=== PATIENT | male | born 1940 | race Caucasian/White ===

== ENCOUNTER 2019-10-28 10:33 | Observation (INO) | payer OTHER ==
[2019-10-28 10:51] VITALS: BMI 25.7
[2019-10-28] MEDS: NACHLORIDE 0.45% 1,000 ML IV SCH ×2 (12:03→20:31)
--- NOTE | 2019-10-28 12:23 | RAD REPORT ---
EXAM DESCRIPTION: CT - Abdomen Pelvis Wo Contrast - 10/28/2019 12:11 pm CLINICAL HISTORY: abdominal pain COMPARISON: No comparisons TECHNIQUE: Axial [address] imaging of the abdomen and pelvis was performed without IV contrast. No IV contrast was given because of allergy, abnormal renal function, patient refusal or physician re quest. No oral contrast administered. All CT scans are performed using dose optimization technique as appropriate and may include automated exposure control or mA/KV adjustment according to patient size. FINDINGS: No suspicious findings in the lung bases. Minimal hiatal hernia present. Liver and spleen show no suspicious findings for noncontrast imaging. Atrophy and fatty infiltration of the pancreatic parenchyma noted. No pancreatic or peripancreatic acute finding. Gallbladder and bi liary tree are also without suspicious finding. No hydronephrosis or suspicious renal mass. Nonspecific mild and symmetric perinephric stranding pres ent. No obstructing or nonobstructing calculus. No right adrenal gland abnormality seen. Minimal nodu larity of the left adrenal gland is present not likely to be of long-term significance. Isodense chester l masses and pyelonephritis cannot be excluded in the absence of IV contrast. The urinary bladder is without significant finding. No prostate gland or seminal vesicle abnormality. No gastric dilatation or wall thickening. No small bowel acute finding seen. There is no appendicitis . Moderate stool volume is present throughout most of the colon. No colon dilatation, wall thickening or mass. Sigmoid diverticulosis is mild to moderate in degree with no active component. No free air, free fluid or pneumatosis. No inflammatory stranding in the peritoneal or retroperiton eal spaces. No bulky lymphadenopathy or omental thickening. Small bilateral fat filled inguinal herni as are present. In the fatty tissues of the right-side perineum near the medial margin of the ischium there is a 15 m illimeter rounded soft tissue mass density. This is centrally more hypodense. There is some mild stra nding in the surrounding fat. Lower lumbar disc and bony degenerative changes are present. No pathologic bone process. IMPRESSION: A 15 millimeter round mass is present in the fatty tissues of the perineum along the med ial margin of the right ischium. A smaller developing abscess or inflammatory process is suspected. T his is not a typical site for malignancy. Prominent sigmoid diverticulosis without diverticulitis. No acute GI process seen. Additional nonacute findings detailed in the body of the report. Full assessment is limited is the absence of IV contrast.
[2019-10-28 12:44] LABS: Absolute Lymphocytes (CBC) 1.9 K/uL (0.7-4.9); Basophils % 0.2 % (0-1.3); Hematocrit 40.8 % (39.6-49.0); Lymphocytes % 23.5 % (15.3-44.8); MPV 8.8 fL (7.6-11.3); RBC Red Blood Cell Count 4.61 M/uL (4.33-5.43)
[2019-10-28 12:54] LABS: Carcinoembryonic Antigen 46.1 ng/mL (0-5.0)
[2019-10-28] MEDS: ATORVASTATIN 40 MG TAB PO SCH (20:34)
[2019-10-28] MEDS ORDERED: ATORVASTATIN 40 MG TAB PO SCH (21:00)
--- NOTE | 2019-10-28 21:29 | HP ---
Date of Admission: 10/28/2019 Chief Complaint: Dehydration, poor eating. History Of Present Illness: An 79-year-old male was seen by GI, Services as part of workup for loss of weight, loss of appetite with a possibility of occult malignancy. The patient had EGD done, it wa s negative. The patient's family brought him to the office saying he is not eating. His blood test shows worsening of dehydration. The patient also had elevated CEA compatible with possible malignant process. Past Medical History: Includes history of hypertension, coronary artery disease. Personal History: Nonsmoker. Allergies: NONE. Medications: Home medicines, please refer to the chart. Review of Systems: No history of chest pain. No history of fever, chills, rigors. Physical Examination: General: Revealed an 79-year-old male, alert for his age. HEENT: Negative. Neck: Supple. JVD negative. Chest: Clear. Heart: Regular. Abdomen: No palpable mass. : Perineal region, no obvious mass. Laboratory Data: BUN 39, creatinine 1.45. CBC normal. CEA elevated to 46. Assessment: 1.Dehydration. 2.Probable malignant process not identified. 3.Hypertension. 4.Hyperlipidemia. 5.Known coronary artery disease. Plan: The patient will receive IV fluids, GI consultation. MARK/NICO Voice ID: [id number]
[2019-10-29] MEDS: NACHLORIDE 0.45% 1,000 ML IV SCH ×4 (04:00→20:20)
[2019-10-29 07:18] LABS: Absolute Lymphocytes (CBC) 1.7 K/uL (0.7-4.9); Basophils % 0.3 % (0-1.3); Hematocrit 37.4 % (39.6-49.0); MPV 8.4 fL (7.6-11.3); RBC Red Blood Cell Count 4.25 M/uL (4.33-5.43)
[2019-10-29 07:31] LABS: Potassium 3.6 mmol/L (3.5-5.1)
[2019-10-29 07:33] LABS: Magnesium 1.4 mg/dL (1.8-2.4)
[2019-10-29] MEDS ORDERED: Magnesium Sulfate 2gm IVPB 2 G/50 ML BAG IV ONE (08:00)
[2019-10-29] MEDS: AMLODIPINE 5 MG TAB PO SCH ×2 (08:29→10:52)
[2019-10-29] MEDS ORDERED: AMLODIPINE 5 MG TAB PO SCH (09:00)
[2019-10-29] MEDS ORDERED: GLYCERIN EACH EYE PRN (09:35)
[2019-10-29] MEDS ORDERED: POLYSORBATE EACH EYE PRN (09:35)
--- NOTE | 2019-10-29 09:39 | P.PN ---
Subjective Date of Service: 10/29/19 Primary Care Provider: Dr. Nevarez(I am covering him for the weekend) Chief Complaint: Fatigue, poor intake, weight loss Subjective: Doing well, Other (No significant nausea, vomiting, diarrhea. Patient had reported some poor oral intake.) Physical Examination - Vital Signs Temperature: 97.5 F Blood Pressure: 166/76 Pulse: 69 Respirations: 18 Pulse Ox (%): 97 - Physical Exam General: Alert, In no apparent distress, Cooperative HEENT: Atraumatic Neck: Supple Respiratory: Clear to auscultation bilaterally, Normal air movement Cardiovascular: Normal pulses, Regular rate/rhythm Gastrointestinal: Normal bowel sounds, Soft and benign, Non-distended, No tenderness, No masses, No rebound, No guarding Musculoskeletal: No erythema, No tenderness, No warmth Integumentary: No tenderness/swelling, No erythema, No warmth, No cyanosis, Other (No erythema or swelling noted to the perineum.) Neurological: Normal speech, Normal strength at 5/5 x4 extr, Normal tone, Normal affect - Studies Laboratory Data (last 24 hrs) 10/29/19 07:06: Sodium 136, Potassium 3.6, BUN 28 H, Creatinine 1.08, Glucose 114 H, Magnesium 1.4 L* 10/29/19 07:06: WBC 7.1, Hgb 12.6 L, Hct 37.4 L, Plt Count 209 10/28/19 12:12: Sodium 137, Potassium 4.0, BUN 39 H, Creatinine 1.43 H, Glucose 125 H 10/28/19 12:12: WBC 8.2 D, Hgb 13.8, Hct 40.8, Plt Count 244 Medications List Reviewed: Yes Assessment & Plan Discharge Plan: Home Plan to discharge in: 24 Hours Physician Review Additional Text: Impression: Poor intake, weight loss, with acute renal injury likely dehydration with Hypomagnesia Recent EGD showing GERD and hiatal hernia CT scan showing 15 mm rounded mass in the fatty tissue of the perineum Hypertension CAD Elevated CEA with history of weight loss Plan: Poor intake, weight loss, with acute renal injury likely dehydration with Hypomagnesia: Continue IV hydration and replacement of electrolytes. Continue to monitor lab closely. I am covering for PCP. PCP had made arrangements with GI to have colonoscopy tomorrow. Will discuss with GI today to see if this can be done as an outpatient versus inpatient. Patient is Medicare and and observation. Will monitor electrolytes. Will discuss further with GI. Plan of care discussed with patient. Will reassess later. Recent EGD showing GERD and hiatal hernia: Will provide PPI. 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 On palpation no evidence of mass. Surgery was consulted to further evaluate. Hypertension: Continue medication. Will hold all losartan. Patient also on Norvasc. Hold blood pressure medication if systolic less than 110. CAD: Will provide DVT prophylaxis. Elevated CEA with history of weight loss: As mentioned above. GI plans for colonoscopy tomorrow. Time Spent Managing Pts Care (In Minutes): 55
--- NOTE | 2019-10-29 10:39 | CON ---
Date of Consultation: 10/29/2019 Brief History Of Present Illness: Patient is a patient of Dr. Nevarez, who was seen as part of a cornelius p for weight loss, loss of appetite, possible occult malignancy and an EGD performed by report, which is nondiagnostic. He was brought to Dr. Nevarez's office saying he had decreased appetite and was fee ling weak, fatigued and dehydrated overall. He had elevation of his CEA level concerning. He has ne adama had a colonoscopy before. Dr. Aguilar was consulted to see him for the above-stated concern. I, however, was consulted to see the patient regarding a nodular mass found in his perineal area on imag ing. 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 Social History: He denies smoking, alcohol, recreational drug use. Allergies: NO KNOWN DRUG ALLERGIES. Home Medications: Included amlodipine, Lipitor, Benadryl, Cozaar, Glucophage, omeprazole, eye drops, and HydroDIURIL/hydrochlorothiazide. Review of Systems: 10-point review of systems other than HPI, denies. Physical Examination: Vital Signs: At the time of my examination, his blood pressure 166/76, pulse 69, respiratory rate 18 , temperature 97.5. General: He is awake, alert, and oriented. Psychiatric: Appropriate, conversive. HEENT: Normocephalic. Sclerae are anicteric. His mucous membranes are moist. Oropharynx clear. Neck: Supple. No JVD. Chest: Normal expansion, excursion. Cardiovascular: Regular rhythm. Pulmonary: Clear to auscultation bilaterally. Abdomen: Soft, nontender, nondistended. Dermatologic: Focused examination of the perineal area shows he has a nodular lesion in the perineal area, which was diagnosed previously on CT scan and I find that it is palpable along the medial devin in of the right ischium. It is small, minimally tender and smooth and mobile. There is no evidence of cellulitis at this area. Laboratory Exam: Reveals a white blood cell count of 7.1, hemoglobin of 12.6, hematocrit of 37.4, pl atelet count is 209. His sodium is 136, potassium 3.6, chloride 98, carbon dioxide is 28, BUN 28, cr eatinine 1.08, glucose is 114, calcium os 9.5, magnesium 1.4. CEA level is 46.1. Procalcitonin is 0 .07. He had imaging performed which included a CT scan of the abdomen and pelvis, officially read as liver and spleen showed no suspicious findings for non-con imaging. There is a 15 mm round mass present i n the fatty tissues of the perineum along the medial margin of right ischium, a small developing absc ess or inflammatory process suspected. This is not typical for malignancy. Prominent sigmoid divert iculosis without diverticulitis. No other GI findings and other nonacute findings were evident. Assessment And Plan: This is an 79-year-old male with fatigue, weight loss. A small perineal collec tion/cystic structure as well as concern for occult malignancy with elevation of the CEA level. 1.IV fluid hydration. 2.Medical management and electrolyte correction. 3.Bowel prep. 4.I recommend the patient get a colonoscopy. Dr. Aguilar is consulted to see the patient and plans t o perform a colonoscopy. 5.I do not find the patient has any acute surgical intervention requirement at this time regarding t his cystic structure. However, should we continue the workup for occult primary and not the obvious on workup, we can consider excisional biopsy of this area to assist with the diagnosis. Thank you for this interesting consult. I will follow along with you. FRANCISCO/NICO Voice ID: [id number] Report ID: [id number]
[2019-10-29] MEDS ORDERED: TRAMADOL HCL 50 MG TAB PO PRN (14:17)
[2019-10-29] MEDS ORDERED: ACETAMINOPHEN 500 MG TAB PO PRN (14:17)
[2019-10-29] MEDS: GLUCERNA SHAKE 237 ML CAN PO SCH ×4 (14:25→21:14)
[2019-10-29] MEDS ORDERED: HYDRALAZINE HCL 25 MG TABLET PO PRN (14:26)
[2019-10-29] MEDS ORDERED: GOLYTELY 4000 ML PO SCH (17:00)
[2019-10-29] MEDS: AMLODIPINE 5 MG PO SCH (21:12)
[2019-10-29] MEDS: ATORVASTATIN 40 MG TAB PO SCH (21:13)
[2019-10-30] MEDS: NACHLORIDE 0.45% 1,000 ML IV SCH ×2 (04:51→09:40)
[2019-10-30 06:05] LABS: Absolute Lymphocytes (CBC) 1.7 K/uL (0.7-4.9); Basophils % 0.5 % (0-1.3); Lymphocytes % 26.7 % (15.3-44.8); MPV 8.2 fL (7.6-11.3); RBC Red Blood Cell Count 4.02 M/uL (4.33-5.43)
[2019-10-30 06:28] LABS: Magnesium 1.6 mg/dL (1.8-2.4); Potassium 3.3 mmol/L (3.5-5.1); Prealbumin 18.4 mg/dL (20-40)
[2019-10-30] MEDS ORDERED: MAGNESIUM SULFATE 1 gm IVPB 1 GM/100 ML BAG IV ONE (06:32)
[2019-10-30] MEDS ORDERED: PANTOPRAZOLE 40MG TABLET PO SCH (07:30)
[2019-10-30] MEDS ORDERED: EPINEPHRINE/PF 1 MG/ML AMP ONE (07:44)
[2019-10-30] MEDS ORDERED: NA CHLORIDE 0.9% 1,000 ML ONE (08:18)
--- NOTE | 2019-10-30 08:25 | P.DS ---
Admission Date: 10/28/19 Discharge Date: 10/30/19 Primary Care Provider: Dr. Nevarez(I am covering him for the weekend) Disposition: ROUTINE DISCHARGE Discharge Condition: GOOD Reason for Admission: Fatigue, poor intake, weight loss Consultations: Surgery-Dr. Danielle GI-Dr. Aguilar Procedures: CT Scan: FINDINGS: No suspicious findings in the lung bases. Minimal hiatal hernia present. Liver and spleen show no suspicious findings for noncontrast imaging. Atrophy and fatty infiltration of the pancreatic parenchyma noted. No pancreatic or peripancreatic acute finding. Gallbladder and biliary tree are also without suspicious finding. No hydronephrosis or suspicious renal mass. Nonspecific mild and symmetric perinephric stranding present. No obstructing or nonobstructing calculus. No right adrenal gland abnormality seen. Minimal nodularity of the left adrenal gland is present not likely to be of long-term significance. Isodense renal masses and pyelonephritis cannot be excluded in the absence of IV contrast. The urinary bladder is without significant finding. No prostate gland or seminal vesicle abnormality. No gastric dilatation or wall thickening. No small bowel acute finding seen. There is no appendicitis. Moderate stool volume is present throughout most of the colon. No colon dilatation, wall thickening or mass. Sigmoid diverticulosis is mild to moderate in degree with no active component. No free air, free fluid or pneumatosis. No inflammatory stranding in the peritoneal or retroperitoneal spaces. No bulky lymphadenopathy or omental thickening. Small bilateral fat filled inguinal hernias are present. In the fatty tissues of the right-side perineum near the medial margin of the ischium there is a 15 millimeter rounded soft tissue mass density. This is centrally more hypodense. There is some mild stranding in the surrounding fat. Lower lumbar disc and bony degenerative changes are present. No pathologic bone process. IMPRESSION: A 15 millimeter round mass is present in the fatty tissues of the perineum along the medial margin of the right ischium. A smaller developing abscess or inflammatory process is suspected. This is not a typical site for malignancy. Prominent sigmoid diverticulosis without diverticulitis. No acute GI process seen. Colonoscopy: Unremarkable except diverticulosis. No mass found. Medical Problem List: Poor intake, weight loss, with acute renal injury likely dehydration with Hypomagnesia Recent EGD showing GERD and hiatal hernia CT scan showing 15 mm rounded mass in the fatty tissue of the perineum Hypertension CAD Elevated CEA with history of weight loss Diabetes mellitus type 2 Moderate protein malnutrition Hyperlipidemia Brief History of Present Illness: 79-year-old male presented with weight loss, loss of appetite. Patient found to have acute renal injury due to dehydration. CT scan shows no obstruction. Patient recently had EGD showing gastritis and hiatal hernia. CEA abnormal. Patient admitted for further evaluation. Hospital Course: Patient presented with poor oral intake, recent severe weight loss. Patient found to have acute renal injury related to dehydration with hypomagnesia. Patient given IV fluids with electrolyte replacement. Patient has improved. Patient had abnormal CEA. This was suspicious for cancer. Surgery was consulted for further recommendation along with GI. Both recommended colonoscopy to further address. This was done in the hospital due to his dehydration status and malnutrition. Colonoscopy performed. Colonoscopy only showed diverticulosis. No mass was noted. Case discussed with surgery and GI. No further intervention needed at this time. Patient will follow up with surgery to further address. Patient had a 15 mm round mass in the fatty tissue of the perineum. This is likely benign but will require biopsy. Still may need to further evaluate for possible occult malignancy. Surgery is to complete workup with possible PET-CT scan in the future. Further workup to be further addressed by surgery. As mentioned above patient with recent EGD showing gastritis and hiatal hernia. Patient had prior esophagram which was unremarkable. Patient previously on Prilosec. This has been discontinued. At discharge he will continue with Protonix [address] scan showed no obstruction but showed a 15 mm round mass in the fatty tissue of the perineum. Surgery evaluated this closely. No need for intervention at this time. Patient will follow up with surgery to biopsy mass. Recommend follow up with surgery within 1 week to further address.. Patient with CAD and hypertension. Medications have been adjusted. Patient previously on hydrochlorothiazide 25 mg daily, losartan 100 mg daily, and Norvasc 5 mg daily. Norvasc was increased and losartan/hydrochlorothiazide were discontinued. Blood pressure has remained stable. At discharge patient will recommend to increase Norvasc to 10 mg daily. Will also recommend to discontinue hydrochlorothiazide and restart losartan at 25 mg twice daily. Recommend to hold blood pressure medication if systolic less than 110. Recommend to monitor blood pressures daily. If blood pressure remains above 140 /90 losartan may need to be further adjusted. This can be addressed by his PCP. Patient with moderate protein malnutrition. Prealbumin was low. Patient started on Glucerna 3 times a day. Patient reports history of diabetes mellitus type 2. A1c obtained. Blood sugar stable. Patient takes metformin. Blood sugar well controlled. At discharge he may continue with metformin 500 mg twice daily but will need to hold medication if blood sugar consistently below 100. Patient may continue with GI soft diet and advance to 2000 ADA diet but will recommend to continue Glucerna 4 times a day to make sure he has adequate nutrition. Recommend to monitor blood sugars at least twice daily, fasting and 2 hr after dinner. Recommend to maintain blood sugars less 140 fasting and less than 200 meals. This can be further monitored and addressed by his PCP. Patient with hyperlipidemia. At discharge he will continue with Lipitor 40 mg daily. Due to his acute renal injury, Will recommend to increase oral intake. Medications have been adjusted as above. Recommend to recheck lab-BMP in 1 week to monitor his progress. Vital Signs/Physical Exam: Temp Pulse Resp BP Pulse Ox 97.6 F 74 16 168/74 H 97 10/30/19 08:00 10/30/19 08:00 10/30/19 08:00 10/30/19 08:00 10/30/19 08:00 General: Alert, In no apparent distress, Oriented x3, Cooperative HEENT: Atraumatic Neck: Supple Respiratory: Clear to auscultation bilaterally, Normal air movement Cardiovascular: Normal pulses, Regular rate/rhythm Gastrointestinal: Normal bowel sounds, Soft and benign, Non-distended, No tenderness, No masses, No rebound, No guarding Musculoskeletal: No erythema, No tenderness, No warmth Integumentary: No tenderness/swelling, No erythema, No warmth, No cyanosis Neurological: Normal speech, Normal strength at 5/5 x4 extr, Normal tone, Normal affect Laboratory Data at Discharge: WBC 6.5 K/uL (4.3-10.9) 10/30/19 05:54 Hgb 12.1 g/dL (13.6-17.9) L 10/30/19 05:54 Hct 35.0 % (39.6-49.0) L 10/30/19 05:54 Plt Count 209 K/uL (152-406) 10/30/19 05:54 Sodium 136 mmol/L (136-145) 10/30/19 05:54 Potassium 3.3 mmol/L (3.5-5.1) L 10/30/19 05:54 BUN 19 mg/dL (7-18) H 10/30/19 05:54 Creatinine 0.96 mg/dL (0.55-1.3) 10/30/19 05:54 Glucose 122 mg/dL (74-106) H 10/30/19 05:54 Magnesium 1.6 mg/dL (1.8-2.4) L 10/30/19 05:54 Home Medications: Atorvastatin Calcium [Lipitor] 1 tab PO BEDTIME 10/28/19 Diphenhydramine HCl [Benadryl Allergy] 25 mg PO PRN PRN 10/28/19 Metformin HCl [Glucophage] 500 mg PO BID 10/28/19 Polysorbate 80/Glycerin [Refresh Dry Eye Therapy Drops] 1 drop EACH EYE PRN PRN 10/28/19 Amlodipine Besylate [Norvasc] 10 mg PO DAILY #30 tablet 10/30/19 Glucerna Shake [Glucerna*] 237 ml PO QID #120 can 10/30/19 Losartan Potassium 25 mg PO BID #60 tablet 10/30/19 Pantoprazole Sodium [Protonix] 40 mg PO DAILY #30 tablet. 10/30/19 New Medications: Amlodipine Besylate [Norvasc] 10 mg PO DAILY #30 tablet Glucerna Shake [Glucerna*] 237 ml PO QID #120 can Losartan Potassium 25 mg PO BID #60 tablet Pantoprazole Sodium [Protonix] 40 mg PO DAILY #30 tablet. Patient Discharge Instructions: 1. Recommend follow up with PCP in 1 week to follow up this hospitalization. 2. Patient presented with poor oral intake, recent severe weight loss. Patient found to have acute renal injury related to dehydration with hypomagnesia. Patient given IV fluids with electrolyte replacement. Patient has improved. Patient had abnormal CEA. This was suspicious for cancer. Surgery was consulted for further recommendation along with GI. Both recommended colonoscopy to further address. This was done in the hospital due to his dehydration status and malnutrition. Colonoscopy performed. Colonoscopy only showed diverticulosis. No mass was noted. Case discussed with surgery and GI. No further intervention needed at this time. Patient will follow up with surgery to further address. Patient had a 15 mm round mass in the fatty tissue of the perineum. This is likely benign but will require biopsy. Still may need to further evaluate for possible occult malignancy. Surgery is to complete workup with possible PET-CT scan in the future. Further workup to be further addressed by surgery. 3. As mentioned above patient with recent EGD showing gastritis and hiatal hernia. Patient had prior esophagram which was unremarkable. Patient previously on Prilosec. This has been discontinued. At discharge he will continue with Protonix [address] scan showed no obstruction but showed a 15 mm round mass in the fatty tissue of the perineum. Surgery evaluated this closely. No need for intervention at this time. Patient will follow up with surgery to biopsy mass. Recommend follow up with surgery within 1 week to further address.. 5. Patient with CAD and hypertension. Medications have been adjusted. Patient previously on hydrochlorothiazide 25 mg daily, losartan 100 mg daily, and Norvasc 5 mg daily. Norvasc was increased and losartan/hydrochlorothiazide were discontinued. Blood pressure has remained stable. At discharge patient will recommend to increase Norvasc to 10 mg daily. Will also recommend to discontinue hydrochlorothiazide and restart losartan at 25 mg twice daily. Recommend to hold blood pressure medication if systolic less than 110. Recommend to monitor blood pressures daily. If blood pressure remains above 140 /90 losartan may need to be further adjusted. This can be addressed by his PCP. 6. Patient with moderate protein malnutrition. Prealbumin was low. Patient started on Glucerna 3 times a day. Patient reports history of diabetes mellitus type 2. A1c obtained. Blood sugar stable. Patient takes metformin. Blood sugar well controlled. At discharge he may continue with metformin 500 mg twice daily but will need to hold medication if blood sugar consistently below 100. Patient may continue with GI soft diet and advance to 1999 ADA diet but will recommend to continue Glucerna 4 times a day to make sure he has adequate nutrition. Recommend to monitor blood sugars at least twice daily, fasting and 2 hr after dinner. Recommend to maintain blood sugars less 140 fasting and less than 200 meals. This can be further monitored and addressed by his PCP. 7. Patient with hyperlipidemia. At discharge he will continue with Lipitor 40 mg daily. 8. Due to his acute renal injury, Will recommend to increase oral intake. Medications have been adjusted as above. Recommend to recheck lab-BMP in 1 week to monitor his progress. Diet: GI soft advanced to 1999 ADA Activity: Ad lili Time spent managing pt's care (in minutes): 55
[2019-10-30] MEDS ORDERED: propofoL 200 MG/20 ML VIAL IV ONE (08:48)
[2019-10-30] MEDS: GLUCERNA SHAKE 237 ML CAN PO SCH (09:00)
[2019-10-30] MEDS ORDERED: HOME MED 1 EA UNK (Losartan Potassium [Cozaar] 1 TAB) PO SCH (09:00)
[2019-10-30] MEDS ORDERED: LOSARTAN POTASSIUM 50 MG TABLET PO SCH (09:00)
[2019-10-30] MEDS ORDERED: HOME MED 1 EA UNK (Omeprazole [Omeprazole] 1 TAB) PO SCH (09:00)
[2019-10-30] MEDS ORDERED: KCL 20 MEQ/100 mL IVPB 20 MEQ/100 ML BAG IV SCH (09:00)
[2019-10-30] MEDS ORDERED: GLYCOPYRROLATE 0.2 MG/ML SYR ONE ×2 (09:11→09:13)
--- NOTE | 2019-10-30 09:22 | ENDO RPT ---
[address], [address] COLONOSCOPY PROCEDURE REPORT EXAM DATE: 10/30/2019 PATIENT NAME: Vincent English MR #: [id number] BIRTHDATE: 1940 ATTENDING: Evert Aguilar Dr STATUS: inpatient SPENT GRAIN DRYER: Chelo Pascual RN and Terri Priest INDICATIONS: The patient is a 79 yr old Male here for a colonoscopy due to colon cancer screening (none prior), elevated CEA in hospital, and weight loss PROCEDURE PERFORMED: Colonoscopy MEDICATIONS: Per Anesthesia. ESTIMATED BLOOD LOSS: None CONSENT: The patient understands the risks and benefits of the procedure and understands that these risks include, but are not limited to: sedation, allergic reaction, infection, perforation and/or bleeding. Alternative means of evaluation and treatment include, among others: physical exam, x-rays, and/or surgical intervention. The patient elects to proceed with this endoscopic procedure. DESCRIPTION OF PROCEDURE: During intra-op preparation period all mechanical medical equipment was checked for proper function. Hand hygiene and appropriate measures for infection prevention was taken. Procedure, possible complications, alternatives including, but not limited to possibility of bleeding, perforation, tear, infection, sepsis, need for surgery, need for blood transfusion, were explained to the patient. After the risks, benefits and alternatives of the procedure were thoroughly explained, Informed consent was verified, confirmed and timeout was successfully executed by the treatment team. The patient was placed in the left lateral position. A digital rectal exam was performed and revealed external hemorrhoids. After appropriate level of anesthesia, the scope was passed. The EC-[id number] ([id number]) endoscope was introduced through the anus and advanced to the terminal ileum which was intubated for a short distance. The quality of the prep was good. The instrument was then slowly withdrawn as the colon was fully examined. Scope withdrawal time was 7 minutes. COLON FINDINGS: Mild diverticulosis was noted throughout the entire examined colon. No bleeding was noted from the diverticulosis. Small internal and external hemorrhoids were found. Retroflexed views revealed small hemorrhoids. The scope was then completely withdrawn from the patient and the procedure terminated. ADVERSE EVENTS: There were no complications. IMPRESSIONS: 1. Mild diverticulosis throughout the entire examined colon 2. Small internal and external hemorrhoids 3. Intubation to terminal ileum RECOMMENDATIONS: follow-up: GI Clinic 1 week(s) RECALL: None scheduled due to age, 79 [address] eSigned: Evert Aguilar Dr 10/30/2019 9:22 AM cc: Emilia Villalpando CPT CODES: ICD9 CODES: PATIENT NAME: Vincent EnglishJf MR#: [id number]
[2019-10-30 09:36] VITALS: O2SAT 100
--- NOTE | 2019-10-30 10:13 | P.PN ---
Subjective Date of Service: 10/30/19 Primary Care Provider: Dr. Nevarez(I am covering him for the weekend) Chief Complaint: Fatigue, poor intake, weight loss Patient had no acute issues, had colonoscopy with Dr. Ling which did not discover any masses in colon. Physical Examination - Vital Signs Temperature: 99.2 F Blood Pressure: 149/55 Pulse: 65 Respirations: 16 Pulse Ox (%): 97 - Physical Exam General: Alert, In no apparent distress, Cooperative Gastrointestinal: Soft and benign, Non-distended, No ascites, No tenderness, No masses, No rebound, No guarding - Studies Laboratory Data (last 24 hrs) 10/30/19 05:54: Sodium 136, Potassium 3.3 L, BUN 19 H, Creatinine 0.96, Glucose 122 H, Magnesium 1.6 L 10/30/19 05:54: WBC 6.5, Hgb 12.1 L, Hct 35.0 L, Plt Count 209 10/29/19 14:45: Magnesium 2.0 D Medications List Reviewed: Yes Assessment And Plan - Current Problems (Diagnosis) (1) Fatigue Current Visit: Yes Status: Acute Plan: - recommend nutrition support per our discussion - follow up in my clinic as outpatient for excision of perineal cyst - workup for possible occult primary due to history of weight loss and elevated CEA level Physician Review Additional Text: Impression: Poor intake, weight loss, with acute renal injury likely dehydration with Hypomagnesia Recent EGD showing GERD and hiatal hernia CT scan showing 15 mm rounded mass in the fatty tissue of the perineum Hypertension CAD Elevated CEA with history of weight loss Plan: Poor intake, weight loss, with acute renal injury likely dehydration with Hypomagnesia: Continue IV hydration and replacement of electrolytes. Continue to monitor lab closely. I am covering for PCP. PCP had made arrangements with GI to have colonoscopy tomorrow. Will discuss with GI today to see if this can be done as an outpatient versus inpatient. Patient is Medicare and and observation. Will monitor electrolytes. Will discuss further with GI. Plan of care discussed with patient. Will reassess later. Recent EGD showing GERD and hiatal hernia: Will provide PPI. 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 On palpation no evidence of mass. Surgery was consulted to further evaluate. Hypertension: Continue medication. Will hold all losartan. Patient also on Norvasc. Hold blood pressure medication if systolic less than 110. CAD: Will provide DVT prophylaxis. Elevated CEA with history of weight loss: As mentioned above. GI plans for colonoscopy tomorrow.
[2019-10-30] MEDS: AMLODIPINE 5 MG PO SCH (10:17)
[2019-10-30 11:26] LABS: Urine Appearance CLEAR; Urine Bilirubin NEGATIVE (NEG); Urine Blood NEGATIVE (NEG); Urine Color YELLOW; Urine Glucose NEGATIVE (NEG); Urine Protein NEGATIVE (NEG); Urine Specific Gravity <=1.005 (1.005-1.030); Urine Urobilinogen 0.2 mg/dL (0.2-1.0); Urine pH 6.5 (5.0-7.0)
[2019-10-30 12:11] VITALS: BP 183/78; TEMP 97.8
[2019-10-30 12:13] LABS: Urine Bacteria <20 /HPF (NONE SEEN); Urine RBC <5 /HPF (NONE SEEN)
[2019-10-30 13:21] LABS: Protime INR 1.14
[2019-10-30 13:40] LABS: Albumin 3.1 g/dL (3.4-5.0); Bilirubin Direct 0.2 mg/dL (0-0.2); Bilirubin Total 0.6 mg/dL (0.2-1.0); Protein, Total 7.1 g/dL (6.4-8.2)
--- NOTE | 2019-10-30 14:43 | CON ---
Date of Consultation: 10/30/2019 Reason For Consultation: Weight loss, elevated CEA. No prior colon cancer screening and possible ma lnutrition. History Of Present Illness: Patient is an 79-year-old white male with history of diabetes; hypertens ion; coronary artery disease, status post 3-vessel CABG. Patient presented to hospital due to contin ue weight loss and anorexia. Patient has lost approximately 50 to 60 pounds over the past 6 months. Etiology unknown. Patient state he quit tobacco approximately 30 years ago. Patient denies any mike shon, hematochezia, hematemesis, coffee-ground emesis, hematuria, dysuria, polydipsia, chest pain, tika rt of breath, seizure, syncope. He has had weight loss of approximately 50 to 60 pounds over the pas t 6 months with loss of appetite, stating he feels full all the time. He underwent barium swallow es ophagram and upper endoscopy without malignancy being detected. He has never had colonoscopy. Past Medical History: Significant for diabetes; hypertension; coronary artery disease status post CA BG, 3-vessel. Home Medications: Metformin, Norvasc, , Lipitor, Cozaar, omeprazole, Benadryl, and some Re fresh eye drops. Allergies: NKDA. Social History: , 1 daughter. No tobacco, quit 30 years ago. No alcohol. Family History: Father of a stroke. Mother of old age at age 90, had a hip fracture prior to her he reports. Review of Systems: The patient has fullness with any type of p.o. intake, some anorexia, 50 to 60 pounds weight loss ove r the past 6 months. Unexplained. Denies any melena, hematochezia, hematemesis, coffee-ground hemat uria, dysuria, polydipsia chest pain, short of breath, seizure, syncope, lower extremity muscle aches , joint aches, backaches. The and daughter state he has occasional nausea, vomiting, regurgitat ion. Some dysphagia in the past but none now. Denies depression, anxiety, elevated pus seem like he is not able to remember all things well. Physical Examination: Vital Signs: The patient is 5 foot, 169 pounds, BMI 25.7 kg/m2. General: He is an elderly male, lying in bed, in no acute distress. HEENT: Normocephalic, atraumatic. Anicteric. Pupils equal, round, and reactive to light. Extraocu lar movements are intact. Oropharynx is clear. Neck: Supple. No masses. Respirations: Clear to auscultation bilaterally. Cardiac: Regular rate and rhythm. Gastrointestinal: Positive bowel sounds. Soft, nontender, nondistended. No hepatosplenomegaly. Extremities: No clubbing, cyanosis. 2+ pulses. Neuro: Alert and oriented x2 to 3. Able to move all extremities well. Sensation intact to light to uch. Laboratory Data: Patient has a white count of 7.1, hemoglobin of 12.6, hematocrit 37.4, MCV of 88, p latelet count 209, polys of 64%, lymphocytes 24%, monocytes 11%, eosinophils 1%. Patient has a sodiu m of 136, potassium 3.3, chloride 101, bicarb 28, BUN of 19, creatinine of 0.96, glucose 122, calcium of 9.1, magnesium 1.6. C-reactive protein of 24, pre-albumin of 18.4, normal at 2240. Patient had a CA-19-9 of 46.1, normal being less than 5 on October 28. Calcium was little elevated on admissi on at 10.2. Patient had a chest x-ray, October 24, that revealed mild COPD, otherwise negative. The sternotomy wires are present. Patient had a modified barium swallow on October 13 that was largely unremarka ble except for mild esophageal stasis and refluxed from the final pureed bolus. Barium swallow on as well that was unremarkable. CT abdomen and pelvis revealed a 15 mm round mass and the fatty tissues of the perineum along the medial margin of the right ischium. He has a history of a p erirectal abscess. The patient's CT Radiology suspect small developing abscess encountered process i s suspected, not typical site for malignancy. He has some prominent sigmoid diverticulosis without d iverticulitis. No other significant findings noted, suffer some lower lumbar disk and bony degenerat janette changes. Impression: 1.Weight loss with elevated CEA of 46.1, nonspecific. He has had no prior colon cancer screening. Of note, he use tobacco in the past, quit 30 years ago. Chest x-ray is unremarkable. CT scan does n ot reveal any malignancy, need to proceed with colonoscopy. Also consider urinalysis in this patient prior to tobacco history. 2.Possible malnutrition with pre-albumin of 18.4. Get albumin also liver panel as well. 3.History of diabetes, hypertension, coronary artery disease, status post 3-vessel coronary artery b ypass graft in the past. Recommendation: 1.Colonoscopy. 2.Check albumin with liver panel. 3.Check urinalysis. 4.GI Clinic followup. RADHA/NICO Voice ID: [id number] Report ID: [id number]
== END 2019-10-30 13:31 | disposition home or self-care (01) ==
LOC: 2ND 10:33
PROVIDERS: ADMIT Family Medicine; ATTEND Family Medicine
PROC: 0DJD8ZZ Inspection of Lower Intestinal Tract, Via Natural or Artificial Opening Endoscopic (ICD-10-PCS; principal; 2019-10-30 08:30)
DX: N17.9 Acute kidney failure, unspecified (principal); E44.0 Moderate protein-calorie malnutrition; K29.70 Gastritis, unspecified, without bleeding; K64.8 Other hemorrhoids; K64.4 Residual hemorrhoidal skin tags; K57.90 Diverticulosis of intestine, part unspecified, without perforation or abscess without bleeding; I10 Essential (primary) hypertension; I25.10 Atherosclerotic heart disease of native coronary artery without angina pectoris; E78.5 Hyperlipidemia, unspecified; E83.42 Hypomagnesemia; K21.9 Gastro-esophageal reflux disease without esophagitis; K44.9 Diaphragmatic hernia without obstruction or gangrene; Z68.25 Body mass index [BMI] 25.0-25.9, adult
CPT/HCPCS: 45378; 85025 ×3; 81001; 80048 ×3; 36415 ×2; 83735 ×3; 84132; 85610; 82947 ×6; 80076; 85730; 82378; 83036; 84134; 84145; 86140; 74176; J2704; J3475 ×2; G0378 ×6; J7030; G0379; J0171

== ENCOUNTER 2019-11-06 12:53 | Emergency (ER) | payer OTHER ==
--- NOTE | 2019-11-06 14:15 | RAD REPORT ---
EXAM DESCRIPTION: CT - Ct Stroke Brain Wo Cont - 11/06/2019 1:57 pm CLINICAL HISTORY: SLURRED SPEECH Headache, drowsiness COMPARISON: Head Brain Wo Cont dated 11/03/2019 TECHNIQUE: All CT scans are performed using dose optimization technique as appropriate and may inclu de automated exposure control or mA/KV adjustment according to patient size. FINDINGS: No acute hemorrhage is seen.Areas of diminished white matter attenuation in both frontal l obes again seen a and appearing slightly more prominent than on comparative study.Rounded circumscrib ed low-density lesion right cerebellum measures 25 x 18 mm, increased in size since prior study which time measured 19 x 13 mm. Right to left midline shift is present involving the cerebellum. The paranasal sinuses and mastoids are clear. The calvarium is intact. IMPRESSION: Increased size and circumscribed low-density lesion in the right cerebellum since prior study with right to left midline shift. Areas of diminished white matter attenuation both frontal lobes mildly progressive since prior study. Followup contrast-enhanced MR imaging of the brain would be recommended. The findings were discussed with Dr. Esquivel On 11/06/2019 at 2:10 p.m. by telephone.
--- NOTE | 2019-11-06 14:25 | EDPHYS ---
Physician Documentation [facility] Name: Vincent English Age: 79 yrs Sex: Male : 1940 Arrival Date: 11/06/2019 Time: 12:54 Bed 18 Private MD: Jun Nevarez R ED Physician Zeb Esquivel HPI: 11/05 13:31 This 79 yrs old Male presents to ER via Wheelchair with complaints of Slurred pm1 Speech, Weakness of Right Hand. 13:31 The patient presents to the emergency department with a speech or higher order brain pm1 function problem, Slurred speech, coordination issues with right hand. Inability to hold some small objects like pens and writing. Onset: The symptoms/episode began/occurred 3 day(s) ago. Context: Reports that started on the day he was doing bowel prep for his colonoscopy. 13:31 Associated signs and symptoms: Pertinent positives: headache, Pertinent negatives: pm1 dizziness, fever, syncope, near-syncope, Chest pain, SOB, Nausea/Vomiting/Diarrhea, Vision changes. Severity of symptoms: in the emergency department the symptoms are worse. The patient has not experienced similar symptoms in the past. PCP and GI. CT head with PCP on 11/03/2019 and colonoscopy with GI. Patient has withheld aspirin for the past 2 weeks for endoscopy and coloscopy. Historical: - Allergies: 13:03 No Known Allergies; ph - PMHx: 13:03 Hypertension; Hyperlipidemia; Diabetes - NIDDM; gastritis; ph - PSHx: 13:03 cardiac bypass; fistula; ph - Immunization history:: Adult Immunizations unknown. - Social history:: Smoking status: Patient denies any tobacco usage or history of. ROS: 13:31 Constitutional: Negative for fever, chills, and weight loss, Eyes: Negative for injury, pm1 pain, redness, and discharge, ENT: Negative for injury, pain, and discharge, Neck: Negative for injury, pain, and swelling, Cardiovascular: Negative for chest pain, palpitations, and edema, Respiratory: Negative for shortness of breath, cough, wheezing, and pleuritic chest pain, Abdomen/GI: Negative for abdominal pain, nausea, vomiting, diarrhea, and constipation, Back: Negative for injury and pain, : Negative for injury, bleeding, discharge, and swelling, MS/Extremity: Negative for injury and deformity, Skin: Negative for injury, rash, and discoloration. 13:31 Neuro: Positive for headache, speech changes, right hand coordination issues, Negative for altered mental status. Exam: 13:31 Constitutional: This is a well developed, well nourished patient who is awake, alert, pm1 and in no acute distress. Head/Face: Normocephalic, atraumatic. Eyes: Pupils equal round and reactive to light, extra-ocular motions intact. Lids and lashes normal. Conjunctiva and sclera are non-icteric and not injected. Cornea within normal limits. Periorbital areas with no swelling, redness, or edema. ENT: Nares patent. No nasal discharge, no septal abnormalities noted. Tympanic membranes are normal and external auditory canals are clear. Oropharynx with no redness, swelling, or masses, exudates, or evidence of obstruction, uvula midline. Mucous membranes moist. Neck: Trachea midline, no thyromegaly or masses palpated, and no cervical lymphadenopathy. Supple, full range of motion without nuchal rigidity, or vertebral point tenderness. No Meningismus. Chest/axilla: Normal chest wall appearance and motion. Nontender with no deformity. No lesions are appreciated. Cardiovascular: Regular rate and rhythm with a normal S1 and S2. No gallops, murmurs, or rubs. No pulse deficits. Respiratory: Lungs have equal breath sounds bilaterally, clear to auscultation and percussion. No rales, rhonchi or wheezes noted. No increased work of breathing, no retractions or nasal flaring. Abdomen/GI: Soft, non-tender, with normal bowel sounds. No distension or tympany. No guarding or rebound. No evidence of tenderness throughout. Back: No spinal tenderness. No costovertebral tenderness. Full range of motion. Skin: Warm, dry with normal turgor. Normal color with no rashes, no lesions, and no evidence of cellulitis. 13:31 Musculoskeletal/extremity: Extremities: all appear grossly normal, with no appreciated pain with palpation, ROM: full active range of motion, in all extremities, Sensation intact. 13:39 Neuro: NIHSS is 0 but patient has fine motor coordination issues with right hand. pm1 Unable to easily hold pen in his hand and write. Some expressive aphasia present: evident frustration with expression of thought. . Vital Signs: 13:12 BP 158 / 61; Pulse 66; Resp 20; Temp 98.8; Pulse Ox 98% on R/A; Weight 80.74 kg; Height ph 5 ft. 8 in. (172.72 cm); 14:00 BP 155 / 48; Pulse 63; Resp 13; Pulse Ox 98% on R/A; Pain 0/10; rb1 15:00 BP 156 / 53; Pulse 72; Resp 18; Pulse Ox 96% on R/A; Pain 0/10; rb1 16:00 BP 162 / 47; Pulse 70; Resp 23; Pulse Ox 96% on R/A; Pain 0/10; rb1 17:00 BP 156 / 47; Pulse 72; Resp 20; Pulse Ox 95% on R/A; Pain 0/10; rb1 17:45 BP 161 / 49; Pulse 73; Resp 21; Pulse Ox 96% ; Pain 0/10; rb1 13:12 Body Mass Index 27.06 (80.74 kg, 172.72 cm) ph NIH Stroke Scale Scores: 13:10 NIHSS Score: 0 rb1 13:39 NIHSS Score: 0 pm1 14:52 NIHSS Score: 0 pm1 Trauma Score (Adult): 13:05 Eye Response: spontaneous(1); Verbal Response: oriented(1); Motor Response: obeys rb1 commands(2); Systolic BP: > 89 mm Hg(4); Respiratory Rate: 10 to 29 per min(4); [place] Score: 15; Trauma Score: 12 14:00 Eye Response: spontaneous(1); Verbal Response: oriented(1); Motor Response: obeys rb1 commands(2); Systolic BP: > 89 mm Hg(4); Respiratory Rate: 10 to 29 per min(4); [place] Score: 15; Trauma Score: 12 15:00 Eye Response: spontaneous(1); Verbal Response: oriented(1); Motor Response: obeys rb1 commands(2); Systolic BP: > 89 mm Hg(4); Respiratory Rate: 10 to 29 per min(4); [place] Score: 15; Trauma Score: 12 16:00 Eye Response: spontaneous(1); Verbal Response: oriented(1); Motor Response: obeys rb1 commands(2); Systolic BP: > 89 mm Hg(4); Respiratory Rate: 10 to 29 per min(4); [place] Score: 15; Trauma Score: 12 17:00 Eye Response: spontaneous(1); Verbal Response: oriented(1); Motor Response: obeys rb1 commands(2); Systolic BP: > 89 mm Hg(4); Respiratory Rate: 10 to 29 per min(4); [place] Score: 15; Trauma Score: 12 MDM: 13:26 Patient medically screened. pm1 14:22 Data reviewed: vital signs. Counseling: I had a detailed discussion with the patient pm1 and/or guardian regarding: the historical points, exam findings, and any diagnostic results supporting the discharge/admit diagnosis, lab results, radiology results, the need to transfer to another facility, [facility] does not immediately have the required specialist. 14:25 ED course: No TPA administered because the patient's onset of symptoms is 3 days. pm1 14:41 Physician consultation: Neurology Adilene regarding regarding transfer, patient's pm1 condition, and will see patient as consult. 15:07 Physician consultation: MD Richie Fontaine was contacted at 15:06, regarding regarding pm1 transfer, patient's condition, and will see patient would like BMP results prior to transfer. 15:40 Physician consultation: MD Richie Fontaine regarding BMP, PT, INR, Accepts patient. pm1 11/05 13:31 Order name: Basic Metabolic Panel; Complete Time: 15:08 pm11/05 13:31 Order name: CBC with Diff; Complete Time: 14:56 pm11/05 13:31 Order name: Protime (+inr); Complete Time: 15:29 pm11/05 13:31 Order name: Ptt, Activated; Complete Time: 15:29 pm11/05 13:31 Order name: CT Stroke Brain w/o Contrast; Complete Time: 14:25 pm11/05 13:31 Order name: Stroke CXR 1 View; Complete Time: 14:39 pm11/05 13:31 Order name: EKG; Complete Time: 13:32 pm11/05 13:31 Order name: Accucheck; Complete Time: 14:35 pm11/05 13:31 Order name: Cardiac monitoring; Complete Time: 14:35 pm11/05 13:31 Order name: EKG - Nurse/Tech; Complete Time: 14:35 pm11/05 13:31 Order name: IV Saline Lock; Complete Time: 14:35 pm1 11/05 13:31 Order name: Labs collected and sent; Complete Time: 14:35 pm1 03 13:31 Order name: NPO; Complete Time: 14:35 pm1 11/05 13:31 Order name: O2 Per Protocol; Complete Time: 14:35 pm1 11/05 13:31 Order name: O2 Sat Monitoring; Complete Time: 14:35 pm1 03 13:31 Order name: Stroke Swallow Screen; Complete Time: 16:01 pm1 Administered Medications: 14:54 Drug: Aspirin 325 mg Route: PO; rb1 15:22 Follow up: Response: No adverse reaction rb1 Disposition: 11/06/19 14:24 Transfer ordered to [facility]. Diagnosis is Cerebellar lesion. Mass versus stroke. - Reason for transfer: Specialty. - Accepting physician is Dr. Grigsby. - Condition is Stable. - Problem is new. - Symptoms are unchanged. NIH Stroke Scale - NIH Stroke Score Date: 11/06/2019 Time: 13:10 Total Score = 0 1a. Level of Consciousness (LOC) - 0(Alert) 1b. Level of Consciousness (LOC) (Year \T\ Age) - 0(Both) 1c. LOC Commands (Open \T\ Closes Eyes/Boat Outfitting Supervisor) - 0(Both) 2. Best Gaze (Lateral Gaze Paresis) - 0(Normal) 3. Visual Field Loss - 0(No visual loss) 4. Facial Palsy - 0(Normal) 5a. Left Arm: Motor (10-second hold) - 0(No drift) 5b. Right Arm: Motor (10-second hold) - 0(No drift) 6a. Left Leg: Motor (5-second hold - always test supine) - 0(No drift) 6b. Right Leg: Motor (5-second hold - always test supine) - 0(No drift) 7. Limb Ataxia (finger/nose \T\ heel/baldwin - test with eyes open) - 0(Absent) 8. Sensory Loss (pinprick arms/legs/face) - 0(Normal) 9. Best Language: Aphasia (description/naming/reading) - 0(No aphasia) 10. Dysarthria (speech clarity - read or repeat words) - 0(Normal) 11. Extinction and Inattention (visual/tactile/auditory/spatial/personal) - 0(No abnormality) Initials: rb1 NIH Stroke Scale - NIH Stroke Score Date: 11/06/2019 Time: 13:39 Total Score = 0 1a. Level of Consciousness (LOC) - 0(Alert) 1b. Level of Consciousness (LOC) (Year \T\ Age) - 0(Both) 1c. LOC Commands (Open \T\ Closes Eyes/Boat Outfitting Supervisor) - 0(Both) 2. Best Gaze (Lateral Gaze Paresis) - 0(Normal) 3. Visual Field Loss - 0(No visual loss) 4. Facial Palsy - 0(Normal) 5a. Left Arm: Motor (10-second hold) - 0(No drift) 5b. Right Arm: Motor (10-second hold) - 0(No drift) 6a. Left Leg: Motor (5-second hold - always test supine) - 0(No drift) 6b. Right Leg: Motor (5-second hold - always test supine) - 0(No drift) 7. Limb Ataxia (finger/nose \T\ heel/baldwin - test with eyes open) - 0(Absent) 8. Sensory Loss (pinprick arms/legs/face) - 0(Normal) 9. Best Language: Aphasia (description/naming/reading) - 0(No aphasia) 10. Dysarthria (speech clarity - read or repeat words) - 0(Normal) 11. Extinction and Inattention (visual/tactile/auditory/spatial/personal) - 0(No abnormality) Initials: pm1 NIH Stroke Scale - NIH Stroke Score Date: 11/06/2019 Time: 14:52 Total Score = 0 1a. Level of Consciousness (LOC) - 0(Alert) 1b. Level of Consciousness (LOC) (Year \T\ Age) - 0(Both) 1c. LOC Commands (Open \T\ Closes Eyes/Boat Outfitting Supervisor) - 0(Both) 2. Best Gaze (Lateral Gaze Paresis) - 0(Normal) 3. Visual Field Loss - 0(No visual loss) 4. Facial Palsy - 0(Normal) 5a. Left Arm: Motor (10-second hold) - 0(No drift) 5b. Right Arm: Motor (10-second hold) - 0(No drift) 6a. Left Leg: Motor (5-second hold - always test supine) - 0(No drift) 6b. Right Leg: Motor (5-second hold - always test supine) - 0(No drift) 7. Limb Ataxia (finger/nose \T\ heel/baldwin - test with eyes open) - 0(Absent) 8. Sensory Loss (pinprick arms/legs/face) - 0(Normal) 9. Best Language: Aphasia (description/naming/reading) - 0(No aphasia) 10. Dysarthria (speech clarity - read or repeat words) - 0(Normal) 11. Extinction and Inattention (visual/tactile/auditory/spatial/personal) - 0(No abnormality) Initials: pm1 Signatures: Dispatcher [employer] EDMS Karo Katz, RN RN ph Keerthi Ocasio, RN RN rb1 Marlo Monk, HAND ROLLER HAND ROLLER pm1 [place] Corrections: (The following items were deleted from the chart) 16:33 14:24 11/06/2019 14:24 Transfer ordered to [facility]. Diagnosis is eb Cerebellar lesion. Mass versus stroke. Reason for transfer: Specialty. Accepting physician is [facility]. Condition is Stable. Problem is new. Symptoms are unchanged. pm1 18:23 16:33 11/06/2019 14:24 Transfer ordered to [facility]. Diagnosis is rb1 Cerebellar lesion. Mass versus stroke. Reason for transfer: Specialty. Accepting physician is Dr. Grigsby. Condition is Stable. Problem is new. Symptoms are unchanged. eb
--- NOTE | 2019-11-06 14:25 | ER ---
Nurse's Notes [facility] Name: Vincent English Age: 79 yrs Sex: Male : 1940 Arrival Date: 11/06/2019 Time: 12:54 Bed 18 Private MD: Jun Nevarez R Diagnosis: Cerebellar lesion. Mass versus stroke Presentation: 11/05 13:05 Onset of symptoms was November 06, 2019 at 09:00. 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 Coronavirus screen: The patient has NOT traveled to a country currently being monitored by the CDC within the last 14 days. The patient has NOT had contact with any known and/or suspected case of coronavirus. Ebola Screen: No symptoms or risks identified at this time. No acute neurological deficit is noted. Initial Sepsis Screen: Does the patient meet any 2 criteria? No. Patient's initial sepsis screen is negative. Does the patient have a suspected source of infection? No. Patient's initial sepsis screen is negative. Risk Assessment: Do you want to hurt yourself or someone else? Patient reports no desire to harm self or others. 13:12 Method Of Arrival: Wheelchair ph 13:12 Acuity: KIANNA 3 ph Triage Assessment: 13:05 Neuro: Reports having trouble gripping a pen. Family reports that the pt. has slurred rb1 speech. . Stroke Activation: Symptom onset > 6 hours Physician: Stroke Attending; Name: ; Notified At: ; Arrived At: Physician: Chief Stroke Resident; Name: ; Notified At: ; Arrived At: Physician: Stroke Resident; Name: ; Notified At: ; Arrived At: Physician: ED Attending; Name: ; Notified At: ; Arrived At: Physician: ED Resident; Name: ; Notified At: ; Arrived At: Historical: - Allergies: 13:03 No Known Allergies; ph - PMHx: 13:03 Hypertension; Hyperlipidemia; Diabetes - NIDDM; gastritis; ph - PSHx: 13:03 cardiac bypass; fistula; ph - Immunization history:: Adult Immunizations unknown. - Social history:: Smoking status: Patient denies any tobacco usage or history of. Screenin:05 Abuse screen: Denies threats or abuse. Nutritional screening: No deficits noted. rb1 Tuberculosis screening: No symptoms or risk factors identified. Fall Risk None identified. Assessment: 13:05 Patient has been NPO before screening. The patient is alert, and able to follow rb1 commands. The patient exhibits slurred or garbled speech. The patient is not exhibiting difficulty speaking. The patient does not exhibit difficulty understanding words. The patient is able to swallow own secretions with no drooling or need for suction. Patient tolerated one teaspoon of water. No drooling, immediate coughing, gurgling, or clearing of the throat was noted. The patient tolerated 90mL of water. No drooling, immediate coughing, gurgling, or clearing of the throat was noted. The patient passed the bedside swallow screening. Oral medications may be given as ordered. Contact Physician for further diet orders. Provider notified of bedside swallow screening results: Marlo Monk DIRECTOR OF PROPERTY MANAGEMENT. General: Appears in no apparent distress. comfortable, Behavior is calm, cooperative, Denies fever. General: reports that the pt. had to do a prep for a colonoscopy last Thursday and after drinking the prep he started having slurred speech. Has had trouble gripping things for the past 2-3 days.. Pain: Denies pain. Neuro: Level of Consciousness is awake, alert, obeys commands, Oriented to person, place, time, situation. Cardiovascular: Capillary refill < 3 seconds is brisk in bilateral fingers. Respiratory: Airway is patent Respiratory effort is even, unlabored, Respiratory pattern is regular, symmetrical. GI: No signs and/or symptoms were reported involving the gastrointestinal system. : No signs and/or symptoms were reported regarding the genitourinary system. Derm: Skin is pink, warm \\T\\ dry. Musculoskeletal: Range of motion: intact in all extremities. 13:10 VAN Scoring: Arm Drift: Patients demonstrates NO arm weakness. Patient is VAN Negative. rb1 14:00 Reassessment: Patient appears in no apparent distress at this time. No changes from rb1 previously documented assessment. 15:00 Reassessment: Patient appears in no apparent distress at this time. Patient and/or rb1 family updated on plan of care and expected duration. Pain level reassessed. Patient is alert, oriented x 3, equal unlabored respirations, skin warm/dry/pink. 16:00 Reassessment: Patient appears in no apparent distress at this time. No changes from rb1 previously documented assessment. Family at the bedside. 16:44 Reassessment: Called report to GONSALO Moore. Information from the SB[facility] was given. All rb1 questions asked and answered. 16:58 Reassessment: Patient appears in no apparent distress at this time. Patient and/or rb1 family updated on plan of care and expected duration. Pain level reassessed. Patient is alert, oriented x 3, equal unlabored respirations, skin warm/dry/pink. Patient denies pain at this time. 17:59 Reassessment: Patient appears in no apparent distress at this time. No changes from rb1 previously documented assessment. Vital Signs: 13:12 BP 158 / 61; Pulse 66; Resp 20; Temp 98.8; Pulse Ox 98% on R/A; Weight 80.74 kg; Height ph 5 ft. 8 in. (172.72 cm); 14:00 BP 155 / 48; Pulse 63; Resp 13; Pulse Ox 98% on R/A; Pain 0/10; rb1 15:00 BP 156 / 53; Pulse 72; Resp 18; Pulse Ox 96% on R/A; Pain 0/10; rb1 16:00 BP 162 / 47; Pulse 70; Resp 23; Pulse Ox 96% on R/A; Pain 0/10; rb1 17:00 BP 156 / 47; Pulse 72; Resp 20; Pulse Ox 95% on R/A; Pain 0/10; rb1 17:45 BP 161 / 49; Pulse 73; Resp 21; Pulse Ox 96% ; Pain 0/10; rb1 13:12 Body Mass Index 27.06 (80.74 kg, 172.72 cm) ph Trauma Score (Adult): 13:05 Eye Response: spontaneous(1); Verbal Response: oriented(1); Motor Response: obeys rb1 commands(2); Systolic BP: > 89 mm Hg(4); Respiratory Rate: 10 to 29 per min(4); [place] Score: 15; Trauma Score: 12 14:00 Eye Response: spontaneous(1); Verbal Response: oriented(1); Motor Response: obeys rb1 commands(2); Systolic BP: > 89 mm Hg(4); Respiratory Rate: 10 to 29 per min(4); [place] Score: 15; Trauma Score: 12 15:00 Eye Response: spontaneous(1); Verbal Response: oriented(1); Motor Response: obeys rb1 commands(2); Systolic BP: > 89 mm Hg(4); Respiratory Rate: 10 to 29 per min(4); [place] Score: 15; Trauma Score: 12 16:00 Eye Response: spontaneous(1); Verbal Response: oriented(1); Motor Response: obeys rb1 commands(2); Systolic BP: > 89 mm Hg(4); Respiratory Rate: 10 to 29 per min(4); [place] Score: 15; Trauma Score: 12 17:00 Eye Response: spontaneous(1); Verbal Response: oriented(1); Motor Response: obeys rb1 commands(2); Systolic BP: > 89 mm Hg(4); Respiratory Rate: 10 to 29 per min(4); [place] Score: 15; Trauma Score: 12 NIH Stroke Scale Scores: 13:10 NIHSS Score: 0 rb1 13:39 NIHSS Score: 0 pm1 14:52 NIHSS Score: 0 pm1 ED Course: 12:54 Patient arrived in ED. ag5 12:54 Jun Nevarez MD is Private Physician. ag5 13:03 Arm band placed on Patient placed in an exam room, on a stretcher. ph 13:05 Patient has correct armband on for positive identification. Placed in gown. Bed in low rb1 position. Call light in reach. Side rails up X 1. trimmer operator three knife on. Pulse ox on. NIBP on. Warm blanket given. 13:09 Marlo Monk NP is PHCP. pm1 13:09 Zeb Esquivel MD is Attending Physician. pm1 13:16 Triage completed. ph 13:27 Keerthi Ocasio, RN is Primary Nurse. rb1 13:46 Stroke CXR 1 View In Process Unspecified. EDMS 14:00 CT completed. Patient tolerated procedure well. Patient moved back from CT. mw3 14:00 CT Stroke Brain w/o Contrast In Process Unspecified. EDMS 14:25 initiated a transfer with Chiquis Rojas from the [facility] transfer [facility]ber. eb 14:34 connected the stroke team complaint investigations officer for [facility] with Marlo MI for patient eb transfer consultation. 14:34 Inserted saline lock: 22 gauge in right wrist, using aseptic technique. Blood collected.bp 14:[address] Fontaine the hospitalist complaint investigations officer for [facility] with Marlo MI for patient transfer consultation. 15:[address] Fontaine again with Marlo Mi for patient transfer consultation. eb 15:53 administrative approval given by Chiquis Espinoza/ patient has been accepted to [facility] 18th floor rm 1802/ Edgard Ibrahim has accepted the patient in transfer/ report to be called to [phone]. 18:00 No provider procedures requiring assistance completed. Patient transferred, IV remains rb1 in place. Administered Medications: 14:54 Drug: Aspirin 325 mg Route: PO; rb1 15:22 Follow up: Response: No adverse reaction rb1 Outcome: 14:24 ER care complete, transfer ordered by MD. pm1 18:00 Transferred by ground EMS to [facility], Transfer form completed. rb1 18:00 Condition: stable 18:00 Instructed on the need for transfer. 18:00 Patient left the ED. rb1 NIH Stroke Scale - NIH Stroke Score Date: 11/06/2019 Time: 13:10 Total Score = 0 1a. Level of Consciousness (LOC) - 0(Alert) 1b. Level of Consciousness (LOC) (Year \\T\\ Age) - 0(Both) 1c. LOC Commands (Open \\T\\ Closes Eyes/Photography Teacher) - 0(Both) 2. Best Gaze (Lateral Gaze Paresis) - 0(Normal) 3. Visual Field Loss - 0(No visual loss) 4. Facial Palsy - 0(Normal) 5a. Left Arm: Motor (10-second hold) - 0(No drift) 5b. Right Arm: Motor (10-second hold) - 0(No drift) 6a. Left Leg: Motor (5-second hold - always test supine) - 0(No drift) 6b. Right Leg: Motor (5-second hold - always test supine) - 0(No drift) 7. Limb Ataxia (finger/nose \\T\\ heel/baldwin - test with eyes open) - 0(Absent) 8. Sensory Loss (pinprick arms/legs/face) - 0(Normal) 9. Best Language: Aphasia (description/naming/reading) - 0(No aphasia) 10. Dysarthria (speech clarity - read or repeat words) - 0(Normal) 11. Extinction and Inattention (visual/tactile/auditory/spatial/personal) - 0(No abnormality) Initials: rb1 NIH Stroke Scale - NIH Stroke Score Date: 11/06/2019 Time: 13:39 Total Score = 0 1a. Level of Consciousness (LOC) - 0(Alert) 1b. Level of Consciousness (LOC) (Year \\T\\ Age) - 0(Both) 1c. LOC Commands (Open \\T\\ Closes Eyes/Photography Teacher) - 0(Both) 2. Best Gaze (Lateral Gaze Paresis) - 0(Normal) 3. Visual Field Loss - 0(No visual loss) 4. Facial Palsy - 0(Normal) 5a. Left Arm: Motor (10-second hold) - 0(No drift) 5b. Right Arm: Motor (10-second hold) - 0(No drift) 6a. Left Leg: Motor (5-second hold - always test supine) - 0(No drift) 6b. Right Leg: Motor (5-second hold - always test supine) - 0(No drift) 7. Limb Ataxia (finger/nose \\T\\ heel/baldwin - test with eyes open) - 0(Absent) 8. Sensory Loss (pinprick arms/legs/face) - 0(Normal) 9. Best Language: Aphasia (description/naming/reading) - 0(No aphasia) 10. Dysarthria (speech clarity - read or repeat words) - 0(Normal) 11. Extinction and Inattention (visual/tactile/auditory/spatial/personal) - 0(No abnormality) Initials: pm1 NIH Stroke Scale - NIH Stroke Score Date: 11/06/2019 Time: 14:52 Total Score = 0 1a. Level of Consciousness (LOC) - 0(Alert) 1b. Level of Consciousness (LOC) (Year \\T\\ Age) - 0(Both) 1c. LOC Commands (Open \\T\\ Closes Eyes/Photography Teacher) - 0(Both) 2. Best Gaze (Lateral Gaze Paresis) - 0(Normal) 3. Visual Field Loss - 0(No visual loss) 4. Facial Palsy - 0(Normal) 5a. Left Arm: Motor (10-second hold) - 0(No drift) 5b. Right Arm: Motor (10-second hold) - 0(No drift) 6a. Left Leg: Motor (5-second hold - always test supine) - 0(No drift) 6b. Right Leg: Motor (5-second hold - always test supine) - 0(No drift) 7. Limb Ataxia (finger/nose \\T\\ heel/baldwin - test with eyes open) - 0(Absent) 8. Sensory Loss (pinprick arms/legs/face) - 0(Normal) 9. Best Language: Aphasia (description/naming/reading) - 0(No aphasia) 10. Dysarthria (speech clarity - read or repeat words) - 0(Normal) 11. Extinction and Inattention (visual/tactile/auditory/spatial/personal) - 0(No abnormality) Initials: pm1 Signatures: Dispatcher [employer] EDMS Karo Katz RN RN ph Keerthi Ocasio, RN RN rb1 Marlo Monk, SHMUEL DIRECTOR OF PROPERTY MANAGEMENT pm1 Nabor Peñaloza RN RN bp [place] Michelle mw3 Quinton Perdomo ag5 Corrections: (The following items were deleted from the chart) 18:24 18:23 Patient left the ED. rb1 rb1
--- NOTE | 2019-11-06 14:28 | RAD REPORT ---
EXAM DESCRIPTION: RAD - Chest Single View - 11/06/2019 1:46 pm CLINICAL HISTORY: slurred speech Chest pain. COMPARISON: Chest Pa And Lat (2 Views) dated 10/24/2019; Chest Pa And Lat (2 Views) dated 09/01/2019 FINDINGS: Portable technique limits examination quality. Mild interstitial pulmonary edema. The heart is moderately enlarged in size with sternotomy wires pre sent. No displaced fractures. IMPRESSION: Mild CHF.
[2019-11-06 14:45] LABS: Absolute Lymphocytes (CBC) 2.2 K/uL (0.7-4.9); Basophils % 0.3 % (0-1.3); Hematocrit 35.2 % (39.6-49.0); Lymphocytes % 23.9 % (15.3-44.8); MPV 8.5 fL (7.6-11.3); RBC Red Blood Cell Count 3.97 M/uL (4.33-5.43)
[2019-11-06] MEDS ORDERED: ASPIRIN 325 MG TAB ONE (14:55)
[2019-11-06 14:56] LABS: Protime INR 1.13
[2019-11-06 15:04] LABS: Potassium 4.1 mmol/L (3.5-5.1)
[2019-11-06 18:49] VITALS: TEMP 98.8
[2019-11-06 18:57] VITALS: BP 161/49; O2SAT 96
--- NOTE | 2019-11-07 07:50 | EKG ---
Test Date: 2019-11-06 Test Time: 12:26:33 Museum Tour Guide: ZENAIDA MEASUREMENT RESULTS: Intervals: Rate: 67 ID: [id number] QRSD: 124 QT: 428 QTc: 452 [place]: P: 60 ID: [id number] QRS: -59 T: 84 INTERPRETIVE STATEMENTS: Normal sinus rhythm Left anterior fascicular block Abnormal ECG No previous ECG available for comparison Electronically Signed On 11-07-19 07:49:39 CDT by Timi Crooks
== END 2019-11-06 18:23 | disposition short-term general hospital (02) ==
LOC: ER 12:53
DX: R53.1 Weakness (principal); G32.81 Cerebellar ataxia in diseases classified elsewhere; R51 Headache; I10 Essential (primary) hypertension
CPT/HCPCS: 36415; 70450; 71045; 80048; 82947; 85025; 85610; 85730; 93005; 99285